=== PATIENT | female | born 1950 | race Hispanic/Latino ===

== ENCOUNTER → 2018-07-24 | Outpatient (CLI) | payer OTHER | END | disposition home or self-care (01) | LOC: RAH 11:45 | PROVIDERS: ATTEND Internal Medicine Hematology & Oncology | DX: M79.89 Other specified soft tissue disorders (principal); C50.211 Malignant neoplasm of upper-inner quadrant of right female breast; R53.1 Weakness; R53.83 Other fatigue; M81.0 Age-related osteoporosis without current pathological fracture | CPT/HCPCS: 93971 ==

== ENCOUNTER → 2018-08-21 | Outpatient (CLI) | payer OTHER | END | disposition home or self-care (01) | LOC: RAH 09:30 | PROVIDERS: ATTEND Internal Medicine Hematology & Oncology | DX: R22.41 Localized swelling, mass and lump, right lower limb (principal); M18.0 Bilateral primary osteoarthritis of first carpometacarpal joints; C50.211 Malignant neoplasm of upper-inner quadrant of right female breast; R53.83 Other fatigue; R53.1 Weakness | CPT/HCPCS: 93971 ==